=== PATIENT | female | born 1930 | race Caucasian/White ===

== ENCOUNTER 2017-08-11 05:47 | Inpatient (IN) ==
[2017-08-08 17:03] LABS: Basophils # 0.1 10*3/uL (0.0-0.2); Basophils % 0.6 % (0.0-0.8); Eosinophils # 0.4 10*3/uL (0.0-0.87); Eosinophils % 4.2 % (0.00-10.9); Hematocrit 43.9 VOL% (35.7-47.0); Hemoglobin 14.8 GM/DL (12.0-16.0); Immature Granulocytes % 0.7 %; Immature Granulocytes Absolute 0.06 #; Lymphocytes # 1.8 10*3/uL (1.4-4.0); Lymphocytes % 21.7 % (21.3-54.2); Mean Corpuscular HGB Conc 33.7 GM/DL (32-36); Mean Corpuscular Hemoglobin 32 PG (27-34); Mean Corpuscular Volume 93.8 FL (87-102); Mean Platelet Volume 9.5 FL (9.6-12.0); Monocytes # 0.8 10*3/uL (0.11-0.8); Monocytes % 9.9 % (1.7-12.7); Neutrophils # 5.3 10*3/uL (1.4-7.4); Neutrophils % 62.9 % (38.7-73.9); Platelet Count 205 T/CUMM (130-400); Red Blood Count 4.68 MC/CUMM (3.8-5.5); Red Cell Distribution Width 13.5 % (9.3-17.3); White Blood Count 8.4 T/CUMM (4-12)
[2017-08-08 17:52] LABS: Bilirubin,Total 0.7 MG/DL (0.2-1.0); Calcium 9.7 MG/DL (8.5-10.1); Osmolality,Calculated 265.5 MOS/KG (273-304); Potassium 4.4 MMOL/L (3.5-5.1); Total Protein 7.6 G/DL (6.4-8.3)
[~2017-08-11 05:47] MED LIST: DIAZEPAM 5 MG TABLET PO ONE; HEPARIN 5,000 UNIT/1 ML VIAL IV ONE; MIDAZOLAM 2 MG/2 ML VIAL IV ONE; fentaNYL 100 MCG/2 ML VIAL IV ONE
[2017-08-11] MEDS ORDERED: ceFAZolin 1,000 MG in SYRINGE 1 EACH IV ONE (06:00)
[2017-08-11 06:39] LABS: PT Patient Result 10.5 SECS
[2017-08-11] MEDS ORDERED: HEPARIN/NACL 0.9% 2 UNITS/ML 2,000 ML IV ONE (07:10)
[2017-08-11] MEDS ORDERED: DIAZEPAM 5 MG TABLET ONE (07:27)
[2017-08-11] MEDS ORDERED: ceFAZolin 1,000 MG VIAL ONE (07:27)
[2017-08-11] MEDS ORDERED: MIDAZOLAM 2 MG/2 ML VIAL ONE (08:48)
[2017-08-11] MEDS ORDERED: fentaNYL 100 MCG/2 ML VIAL ONE (08:48)
[2017-08-11] MEDS ORDERED: HEPARIN 5,000 UNIT/1 ML VIAL ONE (08:59)
[2017-08-11] MEDS ORDERED: ceFAZolin 2,000 MG in PREMIX 1 EACH IV ONE (10:47)
[2017-08-12] MEDS ORDERED: ceFAZolin 2,000 MG in PREMIX 1 EACH IV ONE (07:30)
[2017-08-12] MEDS ORDERED: HEPARIN 10,000 UNIT/10 ML VIAL ONE (09:48)
[2017-08-12] MEDS ORDERED: PROTAMINE SULFATE 50 MG/5 ML VIAL IV ONE (09:48)
[2017-08-12] MEDS ORDERED: HEPARIN 5,000 UNIT/1 ML VIAL ONE (10:15)
[2017-08-12] MEDS ORDERED: THROMBIN TOPICAL (RECOMBINANT) 5,000 UNIT VIAL TOP ONE (10:15)
[2017-08-12] MEDS ORDERED: VANCOMYCIN 500 MG VIAL ONE (10:15)
[2017-08-12] MEDS ORDERED: ONDANSETRON 4 MG/2 ML VIAL IV PRN (12:57)
[2017-08-12] MEDS ORDERED: MORPHINE 4 MG/1 ML VIAL IV PRN (12:57)
[2017-08-12] MEDS ORDERED: ACETAMINOPHEN 325 MG TABLET PO PRN (13:01)
[2017-08-12] MEDS ORDERED: SODIUM CHLORIDE 0.9% 1,000 ML IV ONE (13:08)
[2017-08-12] MEDS ORDERED: ETOMIDATE 40 MG/20 ML VIAL IV ONE (13:08)
[2017-08-12] MEDS ORDERED: SODIUM CHLORIDE 0.9% 250 ML IV ONE (13:08)
[2017-08-12] MEDS ORDERED: ONDANSETRON 4 MG/2 ML VIAL ONE (13:08)
[2017-08-12] MEDS ORDERED: PHENYLEPHRINE 1 MG/10 ML SYRINGE IV ONE (13:08)
[2017-08-12] MEDS ORDERED: PHENYLEPHRINE 10 MG/1 ML VIAL IV ONE (13:08)
[2017-08-12] MEDS ORDERED: ROCURONIUM 100 MG/10 ML VIAL IV ONE (13:08)
[2017-08-12] MEDS ORDERED: SEVOFLURANE 1 UNIT/15 MINUTE INH ONE (13:08)
[2017-08-12] MEDS ORDERED: PROPOFOL 200 MG/20 ML VIAL IV ONE (13:08)
[2017-08-12] MEDS ORDERED: METOPROLOL TARTRATE 5 MG/5 ML VIAL IV ONE (13:09)
[2017-08-12 15:03] LABS: Hematocrit 38.4 VOL% (35.7-47.0); Hemoglobin 13.1 GM/DL (12.0-16.0)
[2017-08-12 15:23] LABS: Potassium 3.7 MMOL/L (3.5-5.1)
[2017-08-12] MEDS ORDERED: TRAVOPROST 0.004% OPH SOLN 2.5 ML BOTTLE LEFT EYE SCH (21:00)
[2017-08-12] MEDS: DOCUSATE SODIUM 100 MG CAPSULE PO SCH (21:16)
[2017-08-12] MEDS: PROPAFENONE 150 MG TABLET PO SCH (21:16)
[2017-08-13 05:16] LABS: Hematocrit 35.4 VOL% (35.7-47.0); Hemoglobin 11.7 GM/DL (12.0-16.0)
[2017-08-13 05:39] LABS: Calcium 8.6 MG/DL (8.5-10.1); Potassium 3.6 MMOL/L (3.5-5.1)
[2017-08-13] MEDS: SODIUM CHLORIDE 0.45% 1,000 ML IV SCH ×2 (08:07→10:31)
[2017-08-13] MEDS: PROPAFENONE 150 MG TABLET PO SCH ×2 (08:52→20:55)
[2017-08-13] MEDS: ANASTROZOLE 1 MG TABLET PO SCH (08:53)
[2017-08-13] MEDS: METOPROLOL SUCCINATE XL 100 MG TABLET PO SCH (08:54)
[2017-08-13] MEDS: CLOPIDOGREL 75 MG TABLET PO SCH (08:55)
[2017-08-13] MEDS: SIMVASTATIN 40 MG TABLET PO SCH (08:55)
[2017-08-13] MEDS: ASPIRIN CHEW 81 MG TABLET PO SCH (08:56)
[2017-08-13] MEDS: CHLORTHALIDONE 25 MG TABLET PO SCH (08:56)
[2017-08-13] MEDS: IRON (CARBONYL) 45 MG TABLET PO SCH (08:57)
[2017-08-13] MEDS: DOCUSATE SODIUM 100 MG CAPSULE PO SCH ×2 (08:57→20:55)
[2017-08-13] MEDS: POLYETHYLENE GLYCOL POWDER 17 GM PACK PO SCH (09:05)
[2017-08-13] MEDS: TRAVOPROST 0.004% OPH SOLN 2.5 ML BOTTLE LEFT EYE SCH (20:55)
[2017-08-14] MEDS: ASPIRIN CHEW 81 MG TABLET PO SCH (10:23)
[2017-08-14] MEDS: ANASTROZOLE 1 MG TABLET PO SCH (10:23)
[2017-08-14] MEDS: DOCUSATE SODIUM 100 MG CAPSULE PO SCH ×2 (10:23→21:09)
[2017-08-14] MEDS: CHLORTHALIDONE 25 MG TABLET PO SCH (10:23)
[2017-08-14] MEDS: CLOPIDOGREL 75 MG TABLET PO SCH (10:23)
[2017-08-14] MEDS: IRON (CARBONYL) 45 MG TABLET PO SCH (10:23)
[2017-08-14] MEDS: PROPAFENONE 150 MG TABLET PO SCH ×2 (10:23→21:09)
[2017-08-14] MEDS: METOPROLOL SUCCINATE XL 100 MG TABLET PO SCH (10:23)
[2017-08-14] MEDS: SIMVASTATIN 40 MG TABLET PO SCH (10:23)
[2017-08-14] MEDS: POLYETHYLENE GLYCOL POWDER 17 GM PACK PO SCH (10:28)
[2017-08-14] MEDS: TRAVOPROST 0.004% OPH SOLN 2.5 ML BOTTLE LEFT EYE SCH (21:09)
[2017-08-15] MEDS: CHLORTHALIDONE 25 MG TABLET PO SCH (09:07)
[2017-08-15] MEDS: METOPROLOL SUCCINATE XL 100 MG TABLET PO SCH (09:07)
[2017-08-15] MEDS: ASPIRIN CHEW 81 MG TABLET PO SCH (09:07)
[2017-08-15] MEDS: POLYETHYLENE GLYCOL POWDER 17 GM PACK PO SCH (09:07)
[2017-08-15] MEDS: SIMVASTATIN 40 MG TABLET PO SCH (09:07)
[2017-08-15] MEDS: ANASTROZOLE 1 MG TABLET PO SCH (09:07)
[2017-08-15] MEDS: DOCUSATE SODIUM 100 MG CAPSULE PO SCH (09:07)
[2017-08-15] MEDS: IRON (CARBONYL) 45 MG TABLET PO SCH (09:07)
[2017-08-15] MEDS: CLOPIDOGREL 75 MG TABLET PO SCH (09:07)
[2017-08-15] MEDS: PROPAFENONE 150 MG TABLET PO SCH (09:08)
[2017-08-15 11:00] VITALS: BP 153/77
== END 2017-08-15 11:58 | disposition home or self-care (01) | DRG 254 ==
LOC: N.RAD 05:47 → N.SDSINP 05:48 → N.3E 10:37
PROVIDERS: ADMIT Surgery; ATTEND Surgery
PROC: IRAGPEL (2017-08-11 08:35)